=== PATIENT | female | born 1935 | race Caucasian/White ===

== ENCOUNTER 2016-10-27 12:11 | Emergency (ER) | payer OTHER ==
[~2016-10-27] VITALS: Ht 165.1 cm; Wt 80.0 kg
[~2016-10-27 12:11] MED LIST: AMLODIPINE BES2.5 MG PO; ASPIR 8181 M1 PO; ASPIRIN81 M2 PO; AVAPRO75 MG PO; CILOSTAZOL100 MG PO; CIPRO500 MG PO; COQ-10100 MG PO; CORDARONE200 MG PO; COUMADIN2.5 MG PO; CRESTOR5 MG PO; FLAX SEED OIL1 EACH PO; FLAXSEED OIL1000 M4 PO; FUROSEMIDE20 MG PO; FUROSEMIDE80 MG PO; IMDUR60 MG PO; IRBESARTAN150 MG PO; ISOSORBIDE MONO60 MG PO; LOPRESSOR50 MG PO; MAGNESIUM400 M1 PO; METOPROLOL SUCC50 MG PO; METOPROLOL TART50 MG PO; MULTIVITAM9 MG/15 M1 PO; ODORLESS GARL1250 MG PO; PLAVIX75 MG PO; PROTONIX40 MG PO; RANEXA500 MG PO; VITAMIN C1000 MG PO; VITAMIN D3400 UNI1 PO; WOMEN'S 50+ DA1 EAC1 PO; WOMEN'S 50+ DA1 EACH PO; [UNRECOGNIZED DRUG - OTHER] PO
[2016-10-27 13:29] LABS: EOSINOPHIL (%) 2.6 % (0-5); EOSINOPHIL COUNT 0.1 K/uL (0-0.3); IMMATURE GRANULOCYTE (%) 0.2 % (0.0-0.7); INSTRUMENT ABS NEUTROPHIL CT 3.5 K/uL; LYMPHOCYTE COUNT 1.1 K/uL (1.0-2.8); MCH 30.4 PG (29.0-34.0); MCHC 32.6 G/DL (30.0-36.0); MCV 93.3 FL (83-99); MEAN PLAT.VOLUME 11.2 uM^3 (9.5-12.4); MONOCYTE COUNT 0.7 K/uL (0-0.8); NEUTROPHIL (%) 65.2 % (45-76); NEUTROPHIL COUNT 3.5 K/uL (1.8-6.4); PLATELET COUNT 218 K/uL (156-360); RBC DIS.WIDTH-CV 12.4 % (11.8-14.6); RBC DIS.WIDTH-SD 42.1 % (39-53); RED BLOOD COUNT 3.75 M/uL (3.80-5.20); WHITE BLOOD COUNT 5.4 K/uL (4.1-10.2)
[2016-10-27 13:36] LABS: CHLORIDE 102 mEq/L (99-109); SODIUM 141 mEq/L (136-147)
[2016-10-27 13:38] LABS: GLUCOSE 112 mg/dL (70-99)
[2016-10-27 13:39] LABS: ANION GAP 10 MEQ/L (2-14)
[2016-10-27 13:42] LABS: GFR ESTIMATE (CALCULATED) 33 mL/min/
[2016-10-27 13:43] LABS: UREA NITROGEN (BUN) 33 mg/dL (9-23)
[2016-10-27] MEDS ORDERED: ANTIVERT25 MG PO (14:24)
[2016-10-27 14:45] VITALS: BP 148/85
== END 2016-10-27 14:46 | disposition home or self-care (01) ==
LOC: EME → EDBD 12:11 → EME 14:46
PROVIDERS: Emergency Medicine
DX: R42 Dizziness and giddiness (principal); E78.5 Hyperlipidemia, unspecified; I10 Essential (primary) hypertension; I25.2 Old myocardial infarction; K21.9 Gastro-esophageal reflux disease without esophagitis; Z95.1 Presence of aortocoronary bypass graft; Z86.718 Personal history of other venous thrombosis and embolism; Z79.01 Long term (current) use of anticoagulants
CPT/HCPCS: 70450; 80048; 85025; 93005; 99281; 99285; J2405

== ENCOUNTER 2017-04-28 07:39 | Emergency (ER) | payer OTHER ==
[~2017-04-28] VITALS: Ht 160 cm; Wt 77.2 kg
[~2017-04-28 07:39] MED LIST changes: +ANTIVERT25 MG PO
[2017-04-28 08:25] LABS: EOSINOPHIL (%) 3.1 % (0-5); EOSINOPHIL COUNT 0.2 K/uL (0-0.3); HEMATOCRIT 34.6 % (36.0-46.0); IMMATURE GRANULOCYTE (%) 0.3 % (0.0-0.7); INSTRUMENT ABS NEUTROPHIL CT 5.4 K/uL; MCH 30.1 PG (29.0-34.0); MCHC 32.7 G/DL (30.0-36.0); MEAN PLAT.VOLUME 12.1 uM^3 (9.5-12.4); MONOCYTE (%) 11.4 % (3-12); MONOCYTE COUNT 0.9 K/uL (0-0.8); NEUTROPHIL COUNT 5.4 K/uL (1.8-6.4); PLATELET COUNT 171 K/uL (156-360); RBC DIS.WIDTH-CV 13.2 % (11.8-14.6); RBC DIS.WIDTH-SD 44.9 % (39-53); RED BLOOD COUNT 3.76 M/uL (3.80-5.20); WHITE BLOOD COUNT 7.5 K/uL (4.1-10.2)
[2017-04-28 08:31] LABS: INTER. NORMALIZED RATIO 1.1; PROTHROMBIN TIME 12.6 SEC (10.2-12.9)
[2017-04-28 08:34] LABS: PTT 28.8 SEC (25-37)
[2017-04-28 08:36] LABS: CHLORIDE 105 mEq/L (99-109); POTASSIUM 3.9 mEq/L (3.7-5.4); SODIUM 142 mEq/L (136-147)
[2017-04-28 08:38] LABS: GLUCOSE 125 mg/dL (70-99)
[2017-04-28 08:39] LABS: ANION GAP 17 MEQ/L (2-14)
[2017-04-28 08:40] LABS: TOTAL BILIRUBIN 0.7 mg/dL (0.0-1.0)
[2017-04-28 08:42] LABS: ALKALINE PHOSPHATASE 85 IU/L (3-129); GFR ESTIMATE (CALCULATED) 22 mL/min/
[2017-04-28 08:43] LABS: UREA NITROGEN (BUN) 50 mg/dL (9-23)
[2017-04-28 08:44] LABS: DIRECT BILIRUBIN 0.2 mg/dL (0.0-0.3)
[2017-04-28 08:48] LABS: TROP-I INTERPRETATION NEGATIVE; TROPONIN-I 0.02 ng/mL (0.0-0.30)
[2017-04-28 10:40] LABS: ADD MIUA? YES; BILIRUBIN NEGATIVE; BLOOD NEGATIVE; COLOR YELLOW ((YELLOW)); GLUCOSE (STRIP) NEGATIVE; KETONES NEGATIVE; LEUKOCYTES SMALL; NITRITE POSITIVE; PROTEIN (STRIP) NEGATIVE; SPECIFIC GRAVITY 1.009 (1.000-1.030); UROBILINOGEN 0.2 MG/DL (0.2-1.0)
[2017-04-28 10:53] LABS: BACTERIA 1+ /HPF; EPITHELIAL CELLS NONE SEEN /HPF; MUCUS TRACE /LPF; RED BLOOD CELLS 0-5 /HPF (0-5); UCUL ADDED? YES; WHITE BLOOD CELLS 15-20 /HPF (0-5)
[2017-04-28 11:59] VITALS: BP 148/95
== END 2017-04-28 12:00 | disposition home or self-care (01) ==
LOC: EME 07:39
PROVIDERS: Emergency Medicine
DX: I50.9 Heart failure, unspecified (principal); R06.02 Shortness of breath; E78.5 Hyperlipidemia, unspecified; I10 Essential (primary) hypertension; I25.2 Old myocardial infarction; K21.9 Gastro-esophageal reflux disease without esophagitis; Z95.1 Presence of aortocoronary bypass graft; Z79.02 Long term (current) use of antithrombotics/antiplatelets
CPT/HCPCS: 71010; 80048; 80076; 81003; 83605; 83880; 84484; 85025; 85610; 85730; 87077; 87086 GA; 87186; 93005; 99281; 99284; J1940